=== PATIENT | male | born 1935 | race Caucasian/White ===

== ENCOUNTER 2017-11-21 19:41 | Emergency (ER) | payer OTHER ==
[~2017-11-21] VITALS: Ht 167.6 cm; Wt 63.5 kg
[2017-11-21 19:50] VITALS: Ht 167.6 cm; Wt 63.5 kg
[2017-11-21 23:02] VITALS: BP 168/63
== END 2017-11-21 23:11 | disposition home or self-care (01) ==
LOC: ED 19:41
DX: S01.21XA Laceration without foreign body of nose, initial encounter (principal); S61.212A Laceration without foreign body of right middle finger without damage to nail, initial encounter; J32.9 Chronic sinusitis, unspecified; I10 Essential (primary) hypertension; M19.90 Unspecified osteoarthritis, unspecified site; Z88.8 Allergy status to other drugs, medicaments and biological substances; Z88.6 Allergy status to analgesic agent; W18.30XA Fall on same level, unspecified, initial encounter; Y93.89 Activity, other specified; Y92.89 Other specified places as the place of occurrence of the external cause; Y99.8 Other external cause status
CPT/HCPCS: 90715; A4570; J2001